=== PATIENT | male | born 1965 ===

== ENCOUNTER 2019-02-16 09:05 | Outpatient (CLI) | payer BC ==
[2019-02-16 10:49] LABS: Chol/HDL Ratio 5.7 %
== END 2019-02-16 09:06 | disposition home or self-care (01) ==
LOC: LAB 09:05
PROVIDERS: ATTEND Internal Medicine
DX: E78.5 Hyperlipidemia, unspecified (principal); E66.3 Overweight
CPT/HCPCS: 36415; 80061; 83036